=== PATIENT | male | born 1970 | race African-American/Black ===

== ENCOUNTER 2021-08-22 15:55 | Emergency (ER) | payer MEDICAID, OTHER ==
[~2021-08-22] VITALS: Ht 175.3 cm; Wt 121.0 kg
[~2021-08-22 15:55] MED LIST: HYDR25TA PO; METF-414 PO; TRAM150C25 PO
[2021-08-22] MEDS ORDERED: KETOROLAC 15MG/ML VIAL IV ONE (16:30)
[2021-08-22 17:01] LABS: BASOPHILS % 0.6 % (0.0-2.0); EOSINOPHILS % 1.2 % (0.0-5.0); HEMATOCRIT. 42.2 % (42.0-52.0); HEMOGLOBIN. 14.1 g/dL (14.0-18.0); LYMPHOCYTES % 9.1 % (20.0-50.0); MEAN CORPUSCULAR HEMOGLOBIN 30.2 pg (28.0-32.0); MEAN CORPUSCULAR VOLUME 90.4 fL (80.0-94.0); MEAN PLATELET VOLUME 7.7 fl (7.4-10.4); MONOCYTES % 8.6 % (2.0-8.0); NEUTROPHILS % 80.5 % (40.0-76.0); PLATELET 325 x1000/uL (130-400); RED BLOOD CELL COUNT 4.66 mill/uL (4.7-6.1); RED CELL DISTRIBUTION WIDTH 14.5 % (11.6-14.6)
[2021-08-22 17:15] LABS: CHLORIDE 107 mEq/L (98-107)
[2021-08-22] MEDS ORDERED: MORPHINE SULFATE 4 MG/ML CPJ (NOT FOR IM USE) IV ONE (20:30)
[2021-08-22 21:00] LABS: CLARITY URINE CLEAR (CLEAR); COLOR URINE YELLOW (YELLOW); KETONES URINE TRACE (NEGATIVE); LEUKOCYTE ESTERASE URINE NEGATIVE (NEGATIVE); NITRITE URINE NEGATIVE (NEGATIVE); OCCULT BLOOD URINE NEGATIVE (NEGATIVE); PH URINE 5.5 (4.5-8.0); PROTEIN URINE NEGATIVE (NEGATIVE); SPECIFIC GRAVITY URINE 1.035 (1.005-1.030)
[2021-08-23 01:57] VITALS: BP 119/70
== END 2021-08-23 02:00 | disposition short-term general hospital (02) ==
LOC: ER 15:55
DX: G89.11 Acute pain due to trauma (principal); M54.59 Other low back pain; M79.605 Pain in left leg; M79.604 Pain in right leg; Z91.81 History of falling; I10 Essential (primary) hypertension; E11.9 Type 2 diabetes mellitus without complications; I69.954 Hemiplegia and hemiparesis following unspecified cerebrovascular disease affecting left non-dominant side
CPT/HCPCS: 36415; 71045; 72131; 80053; 81003; 82962; 85025; 96374; 96375; 99285; J1885; J2270

== ENCOUNTER 2022-12-03 14:56 | Emergency (ER) | payer OTHER ==
[~2022-12-03] VITALS: Ht 177.8 cm; Wt 119.0 kg
[2022-12-03 14:58] VITALS: BP 142/99; PULSE 104; RESP 10; TEMP 98.9; O2SAT 98
== END 2022-12-03 17:05 | disposition left against medical advice (07) ==
LOC: ER 14:56
DX: M54.50 Low back pain, unspecified (principal); E11.9 Type 2 diabetes mellitus without complications; I10 Essential (primary) hypertension; Z86.73 Personal history of transient ischemic attack (TIA), and cerebral infarction without residual deficits
CPT/HCPCS: 99281